=== PATIENT | male | born 1945 | race Caucasian/White ===

== ENCOUNTER 2017-05-20 14:02 | Emergency (ER) | payer OTHER, BC ==
[2017-05-20 14:12] VITALS: TEMP 97.7
--- NOTE | 2017-05-20 14:49 | EDPHY ---
H & P Stated Complaint: L back pain-worse with movmt--aggravating straining/lifting Time Seen by Provider: 05/20/17 14:49 HPI/ROS: HPI: This is a 71-year-old male who presents with Chief Complaint: L back pain-worse with movement--aggravating straining/lifting Location: Left lumbar back Quality: Pain Duration: Is 2-3 days Signs and Symptoms: No bleeding, + radiation, no numbness, no weakness, no tingling, no incontinence, + decreased range of motion, no swelling, + pain, no fever, no dysuria, no hematuria, no groin/testicular pain Timing: Worsening Severity: Moderate Context: Patient is originally from [place] here visiting his daughter for her birthday presents with exacerbation of left lumbar back pain after he twisted his in a certain position while in bed. Drove from [place] to [facility]. Reports that in the last month he has had 2 insistence is of lifting and twisting where he has irritated the same spot and had pain. He reports that the pain would wear off after several days. This time however when he turned over in bed 2-3 days ago the pain has continued to get worse and radiated a down his left buttock. He is most comfortable in slight extension position. Denies any urinary symptoms/incontinence/weakness. He is slow when ambulating. No prior history of back problems. [id number] pain medications are not relieving his discomfort. Modifying Factors: [id number] pain medication Comment: ROS: see HPI Constitutional: No fever, no chills, no weight loss Eyes: No blurred vision Respiratory: No shortness of breath, no cough Cardiovascular: No chest pain Gastrointestinal: No nausea, no vomiting no diarrhea Genitourinary: No dysuria Extremities: No myalgias Neurologic: No weakness, no numbness Skin: No rashes Hematologic: No bruising, no bleeding MEDICAL/SURGICAL/SOCIAL HISTORY: Medical history: BPH, palpitation Surgical history: Denies Social history: with children. Lives in [place]. CONSTITUTIONAL: Extremely pleasant elderly white male, at bedside, awake and alert, no obvious distress HEENT: Atraumatic and normocephalic. NECK: supple, no midline tenderness, flexion 45 degrees, extension 45 degrees, right and left lateral flexion 45 degrees. No meningismus. Cardiovascular: Normal S1/S2, regular rate, regular rhythm, without murmur rub or gallop. PULMONARY/CHEST: Symmetrical and nontender. no crepitus. Clear to auscultation bilaterally. Good air movement. No accessory muscle usage. ABDOMEN: Soft, nondistended, nontender, no ecchymosis. PELVIC: no pain with rocking; bilateral hips flexion 125 degrees, extension 30 degrees, with no pain internal rotation and no pain external rotation. BACK: No midline tenderness, left-sided L4-L5 moderate reproducible paraspinous tenderness; no paraspinous spasm, deep tendon reflexes 2/2, no pain with straight leg raise, No foot drop. Achilles reflexes are equal bilaterally. Able to walk on heels and toes without difficulty. Pain with flexion. Minimal pain with extension. Relatively good bilateral lateral rotation. EXTREMITIES: 2/2 pulses, strength 5/5, DIP/PIP/MCP flexion/extension intact with good light touch sensation. no deformities, no clubbing, no cyanosis or edema. NEUROLOGICAL: no focal neuro deficits. GCS 15. Light touch sensation intact. SKIN: Warm and dry, no erythema. no rash. Good capillary refill. Source: Patient Exam Limitations: No limitations - Personal History Current Tetanus/Diphtheria Vaccine: Unsure Current Tetanus Diphtheria and Acellular Pertussis (TDAP): Unsure - Medical/Surgical History Hx Asthma: No Hx Chronic Respiratory Disease: No Hx Diabetes: No Hx Cardiac Disease: No Hx Renal Disease: No Hx Cirrhosis: No Hx Alcoholism: No Hx HIV/AIDS: No Hx Splenectomy or Spleen Trauma: No Other PMH: prostate. palpitations - Social History Smoking Status: Never smoked Constitutional: Initial Vital Signs Temperature (C) 36.5 C 05/20/17 14:09 Heart Rate 76 05/20/17 14:09 Respiratory Rate 18 05/20/17 14:09 Blood Pressure 165/72 H 05/20/17 14:09 O2 Sat (%) 97 05/20/17 14:09 O2 Delivery Mode Room Air Allergies/Adverse Reactions: Iodinated Contrast- Oral and IV Dye Allergy (Verified 05/20/17 14:08) Home Medications: Medication Instructions Recorded Cardizem Cd 05/20/17 Cyclobenzaprine [Flexeril 10 MG 10 mg PO TID PRN #15 tab 05/20/17 (*)] Flomax 05/20/17 methylPREDNISolone [Medrol Dose 1 each PO AD #0 ea 05/20/17 Marlon] oxyCODONE/APAP 5/325 [Percocet 1 - 2 tab PO Q4H PRN #10 tab 05/20/17 5/325 (*)] Medical Decision Making - Diagnostics Imaging Results: Imaging Impressions Lumbar Spine MRI 05/20/17 15:15 Impression: Multilevel lumbar degenerative disk disease, as detailed by level above. There is moderate acquired central canal narrowing at L3-L4. With reference to the left lower extremity radiculopathy, asymmetric left-sided neural foraminal encroachment is present at L2-L3, L3-L4, and L4-L5. Results called to Ele Hampton PA-C, in the Emergency Department at 4:30 p.m. ED Course/Re-evaluation: Due to worsening symptoms and difficulty ambulating; patient and have requested MRI lumbar spine be ordered Given IV Toradol, IV Decadron, IV Valium, IV morphine upon arrival No signs of neurovascular compromise/tenting of skin/compartment syndrome/ extremities and joints examined above and below area of concern and are neurovascularly intact/diskitis/myositis/epidural hematoma/cauda equina syndrome. 1634: Called by radiologist who reports multilevel degenerative disc disease but no signs of central canal stenosis/cauda equina syndrome. + annular disc bulging L2 through L5 1640: Reassessed patient who reports improvement in pain. Ambulatory at discharge. MRI given to patient on disc to take back to [place]. This patient was seen under the supervision of my secondary supervising physician. I evaluated care for this patient independently. Discussed this patient with Dr. Arreola who did not see the patient. Differential Diagnosis: Back pain including but not limited to muscular pain, herniated disc, spine fracture, intra-abdominal causes and urinary tract infection. - Data Points Medications Given: Discontinued Medications Dexamethasone (Decadron Injection) 8 mg IVP EDNOW ONE Stop: 05/20/17 15:17 Last Admin: 05/20/17 15:52 Dose: 8 mg Diazepam (Valium) 5 mg IVP EDNOW ONE Stop: 05/20/17 15:17 Last Admin: 05/20/17 15:53 Dose: 5 mg Ketorolac Tromethamine (Toradol) 15 mg IVP EDNOW ONE Stop: 05/20/17 15:17 Last Admin: 05/20/17 15:52 Dose: 15 mg Morphine Sulfate (Morphine) 4 mg IVP EDNOW ONE Stop: 05/20/17 15:17 Last Admin: 05/20/17 15:53 Dose: 4 mg Departure - Departure Disposition: Home, Routine, Self-Care Clinical Impression: Lumbar degenerative disc disease, Bulging of lumbar intervertebral disc Condition: Good Instructions: Lumbar Disc Herniation (ED), Degenerative Disc Disease (ED), Lower Back Exercises (ED) Additional Instructions: MRI shows multilevel degenerative disc disease throughout lumbar spine. + annular disc bulging at L2-L5. No signs of central stenosis/cauda equina syndrome. Take Tylenol 650 mg every 4 hours and/or Ibuprofen 600 mg every 8 hours with food as needed for pain. Use Percocet every 4 hours as needed for severe/break through pain. Do not use Tylenol and Percocet concomitantly. Take Medrol Dosepak starting this evening. Take Flexeril every 8 hr as needed for muscle spasm. Follow-up with Neurosurgery upon return to [place]. You may benefit from epidural or facet injection therapy. Return to the ER immediately if you have new or worsening back pain, fevers/ chills, flu like symptoms, incontinence or inability to urinate or defecate, weakness, paralysis, or any other symptom that concerns you Referrals: PCP Not In,Yohana [Medical Doctor] - As per Instructions Rolando Swain MD [Medical Doctor] - As per Instructions Prescriptions: Cyclobenzaprine [Flexeril 10 MG (*)] 10 mg PO TID PRN #15 tab PRN Reason: Spasms methylPREDNISolone [Medrol Dose Marlon] 1 each PO AD #0 ea oxyCODONE/APAP 5/325 [Percocet 5/325 (*)] 1 - 2 tab PO Q4H PRN #10 tab PRN Reason: Pain, Severe
[2017-05-20] MEDS ORDERED: DEXAMETHASONE 4 MG/ML VIAL IVP ONE (15:16)
[2017-05-20] MEDS ORDERED: DIAZEPAM 5 MG/ML 1 ML SYR IVP ONE (15:16)
[2017-05-20] MEDS ORDERED: KETOROLAC 15 MG/1 ML SDV IVP ONE (15:16)
[2017-05-20 15:57] VITALS: PULSE 60; RESP 16
[2017-05-20 17:08] VITALS: BP 137/71; O2SAT 93
== END 2017-05-20 17:07 | disposition home or self-care (01) ==
DX: M51.36 Other intervertebral disc degeneration, lumbar region (principal); M51.26 Other intervertebral disc displacement, lumbar region; X50.9XXA Other and unspecified overexertion or strenuous movements or postures, initial encounter; Y92.89 Other specified places as the place of occurrence of the external cause; Y99.8 Other external cause status; Y93.89 Activity, other specified
CPT/HCPCS: 72148; 96374; 96375; 99285; J1100; J1885; J2270; J3360